=== PATIENT | female | born 1990 | race Caucasian/White ===

== ENCOUNTER → 2017-07-05 | Outpatient (CLI) | payer OTHER ==
[~2017-07-05] MED LIST: FERR325T3 PO; IBUP80TA PO; PERCOCET PO; PREN27TA3 PO; TUMS500C PO
[2017-07-05 17:54] LABS: BASO % 0.6 % (0.0-1.0); EOS # 0.1 K/mm3 (0.0-0.50); EOS % 1.4 % (0.0-3.0); LARGE UNSTAINED CELL # 0.1 K/mm3 (0.0-0.4); LARGE UNSTAINED CELL % 1.2 % (0.0-4.0); LYMPH # 2.1 K/mm3 (1.5-6.5); LYMPH % 32.7 % (24.0-44.0); MEAN CORPUSCULAR HEMOGLOBIN 29.8 pg (27.0-33.0); MEAN CORPUSCULAR HGB CONC 33.6 g/dl (32.0-36.5); MEAN CORPUSCULAR VOLUME 88.5 fl (80.0-96.0); MONO # 0.3 K/mm3 (0.0-0.8); MONO % 5.3 % (0.0-5.0); NEUTROPHILS # 3.7 K/mm3 (1.8-7.7); NEUTROPHILS % 58.8 % (36.0-66.0); PLATELET COUNT, AUTOMATED 274 k/mm3 (150-450); RED CELL DISTRIBUTION WIDTH 13.4 % (11.5-14.5); WHITE BLOOD COUNT 6.2 K/mm3 (4.0-10.0)
[2017-07-08 10:55] LABS: HBsAg Prenatal NEGATIVE (NEGATIVE)
== END ==
LOC: M SMT 13:57
PROVIDERS: ATTEND Pediatrics
DX: Z34.81 Encounter for supervision of other normal pregnancy, first trimester (principal)

== ENCOUNTER → 2017-09-06 | Outpatient (REF) | payer OTHER | LOC: M LAB REF 16:47 | PROVIDERS: ATTEND Advanced Practice Midwife | DX: Z34.82 Encounter for supervision of other normal pregnancy, second trimester (principal) ==

== ENCOUNTER → 2017-09-27 | Outpatient (CLI) | payer OTHER ==
--- NOTE | 2017-09-27 12:08 | REP ---
Obstetric ultrasound for anatomy: There is a single intrauterine gestation in a vertex presentation. There is movement and cardiac activity. The heart rate is 150 beats per minute. The placenta is anterior. There is no placenta previa or abruptio. Placenta is grade zero. The amniotic fluid volume subjectively is normal. Cervix measures 4.6 cm length. By today's measurements the gestational age is 19 weeks 5 days with an GE of 02/17/2016. Gestational age by LMP is 20 weeks 2 days. weight is 329 grams (0 pounds, 11 ounces). This is the 38th percentile for 20 weeks 2 days. The following anatomic structures are identified and are unremarkable: Intracranial lateral ventricles, choroid plexus, cisterna magna, cerebellum, upper lip, facial profile, face, lungs, four-chamber heart, cardiac, four-chamber view, cardiac right ventricular outflow tract, diaphragm, stomach, cord insertion, three-vessel cord, kidneys, bladder, spine and upper lower extremities. Suboptimally demonstrated is the left ventricular outflow tract. A followup study dedicated to this structure might be considered. Otherwise, there are no anomalies.
== END ==
LOC: M WHC 08:58
PROVIDERS: ATTEND Specialist
DX: Z34.82 Encounter for supervision of other normal pregnancy, second trimester (principal); Z3A.20 20 weeks gestation of pregnancy

== ENCOUNTER → 2017-10-11 | Outpatient (CLI) | payer OTHER ==
--- NOTE | 2017-10-11 10:32 | REP ---
Obstetric sonography: History: Supervision of for anatomy. Comparison study September 27, 2017. Findings: Scanning through the gravid uterus demonstrates a viable single intrauterine gestation in a cephalic lie. motion is observed and heart rate is recorded at 160 beats per minute. An anterior grade 1 placenta is seen without evidence of previa or abruption. Amniotic fluid is subjectively normal. Closed cervical length is 5.2 cm. No extrauterine abnormality is observed. There has been appropriate interval growth. Exam quality is inhibited to some degree by patient body habitus and position. No anomaly is seen. The following anatomic structures are identified today and felt to be unremarkable: cranium, choroid plexus, cavum, cerebellum and posterior fossa, lungs, diaphragm, left-sided stomach, abdominal wall cord insertion, three-vessel umbilical cord, kidneys and bladder, spine, upper and lower extremities. heart is less than optimally seen including the left ventricular outflow tract today. Biometry chart: BPD 5.4 cm 22 weeks 3 days Head circumference 20.3 cm 22 weeks 3 days Abdominal, 17.9 cm 22 weeks 5 days Femur length 3.9 cm 22 weeks 3 days Humeral length 3.7 cm 22 weeks 5 days HC/AC ratio normal 1.14. Cephalic index normal 0.73. Estimated weight 517 grams, 1 pound 2 ounces, 79th percentile for 21 weeks 4 days. Impression: Viable single intrauterine gestation of 22 weeks 4 days by today's composite criteria. Expected gestational age estimate based on prior sonography is 21 weeks 5 days. GE by prior sonography February 16, 2018. Left ventricular cardiac outflow tract is still less than optimally seen. Signed by Eloy Bray MD 10/11/2017 01:12 P
== END ==
LOC: M RAD 08:40
PROVIDERS: ATTEND Specialist
DX: Z34.82 Encounter for supervision of other normal pregnancy, second trimester (principal); Z3A.22 22 weeks gestation of pregnancy

== ENCOUNTER → 2017-11-11 | Outpatient (CLI) | payer OTHER ==
--- NOTE | 2017-11-11 19:19 | REP ---
Obstetric sonography: History: Supervision of . Followup anatomy. Findings: Scanning through the gravid uterus demonstrates a viable single intrauterine gestation in a transverse lie, head to the maternal left. motion is observed and heart rate is recorded at 143 beats per minute. An anterior grade 0 placenta is seen without evidence of previa or abruption. Amniotic fluid is subjectively normal. Closed cervical length is 5.0 cm measured transabdominally. No extrauterine abnormalities observed. There has been greater than expected interval growth. No anomaly is seen. spine and upper extremities are less than optimally visualized today however these were observed previously. The following additional anatomic structures are again identified and felt to be unremarkable: cranium, choroid plexus, cavum, cerebellum and posterior fossa, face and profile, lungs, four-chamber heart, left and right ventricular outflow tract views, diaphragm, left-sided stomach, abdominal wall cord insertion, three-vessel umbilical cord, kidneys and bladder, lower extremities. Biometry chart: BPD 7.1 cm = 28 weeks 3 days HC 25.0 cm = 27 weeks 1 day AC 25.3 cm = 29 weeks 4 days FL 5.2 cm = 27 weeks 5 days HL 4.7 cm = 27 weeks 5 days HC/AC ratio normal 0.99. Cephalic index normal 0.81. Estimated weight 1257 grams, 2 pounds 12 ounces, greater than 97th percentile for 26 weeks 0 days. Impression: Viable single intrauterine gestation at 28 weeks 1 day by today's composite criteria. Expected gestational age estimate based on prior sonography is 26 weeks 1 day. GE by prior sonography February 16, 2018. Estimated weight is greater than 97th percentile. Signed by Eloy Bray MD 11/11/2017 07:58 P
== END ==
LOC: M RAD 16:33
PROVIDERS: ATTEND Specialist
DX: Z34.82 Encounter for supervision of other normal pregnancy, second trimester (principal)

== ENCOUNTER → 2017-11-19 | Outpatient (CLI) | payer OTHER ==
[2017-11-19 13:32] LABS: BASO % 0.1 % (0.0-1.0); EOS # 0.1 10^3/uL (0.0-0.50); EOS % 0.7 % (0.0-3.0); IMMATURE GRANULOCYTE % 0.4 % (0-0); LYMPH # 1.8 10^3/uL (1.5-6.5); LYMPH % 24.3 % (24.0-44.0); MEAN CORPUSCULAR HEMOGLOBIN 29.8 pg (27.0-33.0); MEAN CORPUSCULAR HGB CONC 33.2 g/dl (32.0-36.5); MEAN CORPUSCULAR VOLUME 89.7 fl (80.0-96.0); MONO # 0.4 10^3/uL (0.0-0.8); MONO % 5.7 % (0.0-5.0); NEUTROPHILS % 68.8 % (36.0-66.0); PLATELET COUNT, AUTOMATED 214 10^3/uL (150-450); RED CELL DISTRIBUTION WIDTH 14.5 % (11.5-14.5); WHITE BLOOD COUNT 7.3 10^3/uL (4.0-10.0)
== END ==
LOC: M SMT 09:02
PROVIDERS: ATTEND Specialist
DX: Z34.82 Encounter for supervision of other normal pregnancy, second trimester (principal); Z3A.00 Weeks of gestation of pregnancy not specified

== ENCOUNTER → 2018-01-03 | Outpatient (REF) | payer OTHER | LOC: M LAB REF 16:59 | DX: Z34.83 Encounter for supervision of other normal pregnancy, third trimester (principal); Z3A.00 Weeks of gestation of pregnancy not specified ==

== ENCOUNTER → 2018-01-21 | Outpatient (REF) | payer OTHER | LOC: M LAB REF 12:56 | DX: Z34.83 Encounter for supervision of other normal pregnancy, third trimester (principal) ==

== ENCOUNTER → 2018-01-27 | Outpatient (CLI) | payer OTHER | LOC: M RAD 16:36 | DX: Z34.83 Encounter for supervision of other normal pregnancy, third trimester (principal); Z3A.29 29 weeks gestation of pregnancy | CPT/HCPCS: 76816 ==

== ENCOUNTER 2018-02-06 23:51 | Outpatient (CLI) | payer OTHER | END 2018-02-07 03:15 | disposition home or self-care (01) | LOC: M LDO 23:51 | DX: O47.1 False labor at or after 37 completed weeks of gestation (principal); Z3A.38 38 weeks gestation of pregnancy; Z88.8 Allergy status to other drugs, medicaments and biological substances | CPT/HCPCS: 76815 ==

== ENCOUNTER 2018-02-09 06:33 | Inpatient (IN) | payer OTHER ==
[2018-02-09 08:05] LABS: HEMATOCRIT 32.3 % (36.0-47.0); HEMOGLOBIN 10.6 g/dl (12.0-16.0); MEAN CORPUSCULAR HEMOGLOBIN 28.6 pg (27.0-33.0); MEAN CORPUSCULAR HGB CONC 32.8 g/dl (32.0-36.5); MEAN CORPUSCULAR VOLUME 87.1 fl (80.0-96.0); PLATELET COUNT, AUTOMATED 209 10^3/uL (150-450); RED BLOOD COUNT 3.71 10^6/uL (4.00-5.40); RED CELL DISTRIBUTION WIDTH 14.6 % (11.5-14.5); WHITE BLOOD COUNT 8.9 10^3/uL (4.0-10.0)
[2018-02-09] MEDS: LR 1,000 ML IV ×3 (08:24→15:26)
[2018-02-09 08:26] LABS: AMPHETAMINES URINE REFLEX NEGATIVE (NEGATIVE); BARBITURATES URINE REFLEX NEGATIVE (NEGATIVE); BENZODIAZEPINES URINE REFLEX NEGATIVE (NEGATIVE); CANNABINOIDS URINE REFLEX NEGATIVE (NEGATIVE); COCAINE METABOLITE URINE REFLE NEGATIVE (NEGATIVE); METHADONE URINE REFLEX NEGATIVE (NEGATIVE); OPIATES URINE REFLEX NEGATIVE (NEGATIVE); PHENCYCLIDINE URINE REFLEX NEGATIVE (NEGATIVE)
[2018-02-09] MEDS: OXYTOCIN DRIP 30 UNITS in APPROPRIATE DILUENT 1 EA IV (08:39)
[2018-02-09] MEDS ORDERED: FENTANYL 2MCG/ML ROPIVACAINE 0.2% IN 0.9% NACL 200ML IVBAG As Ordered (12:25)
[2018-02-09] MEDS ORDERED: LACTATED RINGER'S 1000 ML IV (14:30)
[2018-02-09] MEDS ORDERED: REFRIGERATOR IV KEYS XX (14:30)
[2018-02-09] MEDS ORDERED: NALOXONE INJ 0.4 MG/1 ML VIAL (J2310) IV ×3 (14:30→18:18)
[2018-02-09] MEDS ORDERED: ONDANSETRON 4MG/2ML VIAL (J2405) IV ×4 (14:30→19:00)
[2018-02-09] MEDS ORDERED: ePHEDrine SULFATE 25 MG/5 ML(5MG/ML) SYRINGE IV (14:30)
[2018-02-09] MEDS ORDERED: diphenhydrAMINE INJ 50MG/ML VIAL (J1200) IV (14:30)
[2018-02-09] MEDS ORDERED: EPIDURAL/PCA KEYS XX (14:30)
[2018-02-09] MEDS ORDERED: FENTANYL/ROPIVACAINE/NACL BAG 200 ML EPIDURAL (14:30)
[2018-02-09] MEDS ORDERED: EPIDURAL COMMENT XX (14:30)
[2018-02-09] MEDS ORDERED: ceFAZolin 2 GM/D5W 50 ML IV BAG (J0690 PER 500MG) As Ordered (17:16)
[2018-02-09] MEDS ORDERED: BICITRA 30ML SOLN UDC As Ordered (17:17)
[2018-02-09] MEDS ORDERED: MORPHINE PRES-FREE INJ 10 MG/10 ML VIAL (J2274) As Ordered (17:24)
[2018-02-09] MEDS ORDERED: OXYTOCIN INJ 10 UNITS/ML VIAL (J2590) As Ordered ×3 (17:25→18:11)
[2018-02-09] MEDS ORDERED: LIDOCAINE 2% W/EPIN INJ 20ML **PRES FREE As Ordered (17:27)
[2018-02-09] MEDS: BICITRA 30ML SOLN UDC PO (17:29)
[2018-02-09] MEDS ORDERED: PHENYLephrine HCL 500 MCG/5 ML (100MCG/ML) SYRINGE (J2370) As Ordered ×2 (17:41→18:11)
[2018-02-09] MEDS ORDERED: ONDANSETRON 4MG/2ML VIAL (J2405) As Ordered (18:10)
[2018-02-09] MEDS ORDERED: KETOROLAC 60 MG/2 ML VIAL (J1885) As Ordered (18:14)
[2018-02-09] MEDS ORDERED: METOCLOPRAMIDE INJ 10MG/2ML VIAL (J2765) IV (18:18)
[2018-02-09] MEDS ORDERED: PERCOCET 5MG/325MG TAB PO (18:45)
[2018-02-09] MEDS ORDERED: RHOGAM 300 MCG (1500 IU) INJ (J2790) IM (18:45)
[2018-02-09] MEDS ORDERED: MEASLES,MUMPS,RUBELLA VACCINE INJ (MMR-II) (90707) SC (18:45)
[2018-02-09] MEDS ORDERED: fentaNYL 100 MCG/2 ML INJECTION (J3010) IV (19:00)
[2018-02-09] MEDS ORDERED: MEPERIDINE INJ 25 MG/ML VIAL (J2175) IV (19:00)
[2018-02-09] MEDS ORDERED: NALBUPHINE HCL 10 MG/ML AMP (J2300) IV (19:00)
[2018-02-09] MEDS: NALBUPHINE HCL 10 MG/ML AMP (J2300) IV (22:26)
[2018-02-10] MEDS: KETOROLAC 30 MG/ML VIAL (J1885) IV ×4 (00:01→18:14)
[2018-02-10] MEDS: LR 1,000 ML IV ×2 (00:02→10:06)
[2018-02-10] MEDS: PERCOCET 5MG/325MG TAB PO ×2 (01:28→10:05)
[2018-02-10] MEDS: LR 500 ML IV (06:15)
[2018-02-10 06:57] LABS: HEMATOCRIT 23.9 % (36.0-47.0); MEAN CORPUSCULAR HEMOGLOBIN 28.9 pg (27.0-33.0); MEAN CORPUSCULAR HGB CONC 32.2 g/dl (32.0-36.5); MEAN CORPUSCULAR VOLUME 89.8 fl (80.0-96.0); PLATELET COUNT, AUTOMATED 151 10^3/uL (150-450); RED BLOOD COUNT 2.66 10^6/uL (4.00-5.40); RED CELL DISTRIBUTION WIDTH 14.8 % (11.5-14.5); WHITE BLOOD COUNT 10.5 10^3/uL (4.0-10.0)
[2018-02-10 06:58] LABS: HEMOGLOBIN 7.7 g/dl (12.0-16.0)
[2018-02-10] MEDS: PRENATAL VITAMINS CHEWABLE TABLET PO (08:34)
[2018-02-10] MEDS: DOCUSATE SODIUM 100 MG CAP PO (19:44)
[2018-02-11] MEDS: PERCOCET 5MG/325MG TAB PO ×2 (00:07→08:01)
[2018-02-11] MEDS: IBUPROFEN 800 MG TAB PO ×2 (01:33→09:09)
[2018-02-11 06:18] LABS: HEMATOCRIT 24.5 % (36.0-47.0); HEMOGLOBIN 7.6 g/dl (12.0-16.0); MEAN CORPUSCULAR HEMOGLOBIN 28.5 pg (27.0-33.0); MEAN CORPUSCULAR VOLUME 91.8 fl (80.0-96.0); PLATELET COUNT, AUTOMATED 149 10^3/uL (150-450); RED BLOOD COUNT 2.67 10^6/uL (4.00-5.40); RED CELL DISTRIBUTION WIDTH 14.8 % (11.5-14.5); WHITE BLOOD COUNT 9.1 10^3/uL (4.0-10.0)
[2018-02-11] MEDS: PRENATAL VITAMINS CHEWABLE TABLET PO (08:01)
== END 2018-02-11 10:55 | disposition home or self-care (01) | DRG 540 ==
LOC: M LDI 06:33 → M OBS 20:29
PROVIDERS: Specialist
PROC: 10D00Z1 Extraction of Products of Conception, Low, Open Approach (ICD-10-PCS; principal; 2018-02-09 17:35)
PROC: 3E033VJ Introduction of Other Hormone into Peripheral Vein, Percutaneous Approach (ICD-10-PCS; 2018-02-09 17:35)
DX: O10.02 Pre-existing essential hypertension complicating childbirth (principal); O34.211 Maternal care for low transverse scar from previous cesarean delivery; Z3A.38 38 weeks gestation of pregnancy; O62.0 Primary inadequate contractions; O66.41 Failed attempted vaginal birth after previous cesarean delivery; Z37.0 Single live birth

== ENCOUNTER → 2018-06-12 | Outpatient (REF) | payer OTHER | LOC: M SFHCPLAZ 13:10 | DX: D22.61 Melanocytic nevi of right upper limb, including shoulder (principal) ==

== ENCOUNTER → 2018-06-17 | Outpatient (REF) | payer OTHER | LOC: M LAB REF 13:52 | DX: Z12.4 Encounter for screening for malignant neoplasm of cervix (principal) ==

== ENCOUNTER → 2019-12-06 | Outpatient (CLI) | payer OTHER ==
[~2019-12-06] MED LIST changes: +COLA100C5 PO; +IBUP-1114 PO; +OXYC1TAB23 PO
--- NOTE | 2019-12-06 12:09 | REP ---
Right foot series: Four views. History: Pain in the right foot. Findings: Overall mineralization pattern is normal. There is plantar calcaneal spurring. An os navicularis noted. No fracture or subluxation is seen. Impression: Plantar heel spur. Otherwise negative radiographs of the right foot. Electronically Signed by Eloy Bray MD 12/06/2019 12:01 P
== END ==
LOC: M ADAMS 11:38
PROVIDERS: ATTEND Physician Assistant
DX: M77.31 Calcaneal spur, right foot (principal); M79.671 Pain in right foot

== ENCOUNTER 2019-12-19 22:54 | Emergency (ER) | payer OTHER ==
[~2019-12-19] VITALS: Ht 162.6 cm; Wt 117.3 kg
[2019-12-19] MEDS ORDERED: ACET500T15 PO (23:12)
[2019-12-19] MEDS ORDERED: diphenhydrAMINE INJ 50MG/ML VIAL (J1200) IV ONE (23:15)
[2019-12-19] MEDS ORDERED: METOCLOPRAMIDE INJ 10MG/2ML VIAL (J2765) IV ONE (23:15)
[2019-12-19] MEDS ORDERED: NS 1,000 ML IV ONE (23:15)
[2019-12-19] MEDS ORDERED: KETOROLAC 30 MG/ML VIAL (J1885) IV ONE (23:15)
[2019-12-19 23:41] LABS: BASO % 0.2 % (0.0-1.0); EOS % 0.1 % (0.0-3.0); HEMATOCRIT 39.9 % (36.0-47.0); HEMOGLOBIN 12.8 g/dl (12.0-15.5); LYMPH # 1.7 10^3/uL (1.5-5.0); LYMPH % 19.1 % (24.0-44.0); MEAN CORPUSCULAR HEMOGLOBIN 27.4 pg (27.0-33.0); MEAN CORPUSCULAR HGB CONC 32.1 g/dl (32.0-36.5); MEAN CORPUSCULAR VOLUME 85.3 fl (80.0-96.0); MONO # 0.4 10^3/uL (0.0-0.8); MONO % 4.2 % (0.0-5.0); NEUTROPHILS # 6.8 10^3/uL (1.5-8.5); NEUTROPHILS % 76.2 % (36.0-66.0); PLATELET COUNT, AUTOMATED 293 10^3/uL (150-450); RED BLOOD COUNT 4.68 10^6/uL (4.00-5.40); WHITE BLOOD COUNT 8.9 10^3/uL (4.0-10.0)
--- NOTE | 2019-12-19 23:44 | REPVR ---
PROCEDURE INFORMATION: Exam: CT Head Without Contrast Exam date and time: 12/19/2019 11:24 PM Age: 29 years old Clinical indication: Altered mental status/memory loss; Confusion or disorientation TECHNIQUE: Imaging protocol: Computed tomography of the head without contrast. Radiation optimization: All CT scans at this facility use at least one of these dose optimization techniques: automated exposure control; mA and/or kV adjustment per patient size (includes targeted exams where dose is matched to clinical indication); or iterative reconstruction. COMPARISON: No relevant prior studies available. FINDINGS: Brain: No evidence of acute intracranial hemorrhage. No acute parenchymal edema. Ventricles: No ventriculomegaly. Bones/joints: No acute fracture. Sinuses: No acute process. Mastoid air cells: Unremarkable as visualized. No mastoid effusion. Soft tissues: No acute findings. IMPRESSION: No acute intracranial process. Electronically signed by: Dillan Herrera On 12/19/2019 23:44:05 PM
[2019-12-19 23:52] LABS: INR 1.02; PROTHROMBIN TIME 13.1 SECONDS (11.8-14.0)
[2019-12-20 00:06] LABS: ACETAMINOPHEN LEVEL < 2.0 UG/ML (10.0-30.0); ALBUMIN 3.8 GM/DL (3.2-5.2); ALT/SGPT 10 U/L (12-78); BILIRUBIN,DIRECT 0.1 MG/DL (0.0-0.2); BILIRUBIN,TOTAL 0.4 MG/DL (0.2-1.0); BLOOD UREA NITROGEN 16 MG/DL (7-18); CALCIUM LEVEL 8.9 MG/DL (8.5-10.1); CARBON DIOXIDE LEVEL 23 MEQ/L (21-32); CHLORIDE LEVEL 105 MEQ/L (98-107); CREATININE FOR GFR 0.92 MG/DL (0.55-1.30); ETHYL ALCOHOL (ETHANOL) < 0.003 % (0.000-0.010); GLOMERULAR FILTRATION RATE > 60.0 (>60); GLUCOSE, FASTING 115 MG/DL (70-100); POTASSIUM SERUM 4.1 MEQ/L (3.5-5.1); SALICYLATE LEVEL < 1.7 MG/DL (5.0-30.0); SODIUM LEVEL 138 MEQ/L (136-145); TOTAL PROTEIN 7.6 GM/DL (6.4-8.2)
[2019-12-20 01:52] VITALS: BP 110/63
== END 2019-12-20 01:59 | disposition home or self-care (01) ==
LOC: M ED 22:54
DX: G43.909 Migraine, unspecified, not intractable, without status migrainosus (principal); J45.909 Unspecified asthma, uncomplicated; Z88.8 Allergy status to other drugs, medicaments and biological substances
CPT/HCPCS: 70450; 80048; 80076; 84443; 85025; 85610; 94760; 96374; 96375; 99284; G0480; J1200; J1885; J2765

== ENCOUNTER → 2021-06-21 | Outpatient (REF) | payer OTHER ==
[~2021-06-21] MED LIST changes: +ACET500T15 PO
[2021-06-21 15:03] LABS: BASO % 0.5 % (0.0-1.0); EOS # 0.1 10^3/uL (0.0-0.5); EOS % 1.5 % (0.0-3.0); HEMATOCRIT 40.8 % (36.0-47.0); HEMOGLOBIN 12.9 g/dl (12.0-15.5); LYMPH # 2.2 10^3/uL (1.5-5.0); LYMPH % 36.5 % (24.0-44.0); MEAN CORPUSCULAR HEMOGLOBIN 28.3 pg (27.0-33.0); MEAN CORPUSCULAR HGB CONC 31.6 g/dl (32.0-36.5); MEAN CORPUSCULAR VOLUME 89.5 fl (80.0-96.0); MONO # 0.4 10^3/uL (0.0-0.8); MONO % 5.8 % (2.0-8.0); NEUTROPHILS # 3.4 10^3/uL (1.5-8.5); NEUTROPHILS % 55.2 % (36.0-66.0); PLATELET COUNT, AUTOMATED 296 10^3/uL (150-450); RED BLOOD COUNT 4.56 10^6/uL (4.00-5.40); WHITE BLOOD COUNT 6.1 10^3/uL (4.0-10.0)
[2021-06-21 15:36] LABS: ALBUMIN 3.7 GM/DL (3.2-5.2); ALT/SGPT 15 U/L (12-78); BILIRUBIN,TOTAL 0.3 MG/DL (0.2-1.0); BLOOD UREA NITROGEN 10 MG/DL (7-18); CARBON DIOXIDE LEVEL 25 MEQ/L (21-32); CHLORIDE LEVEL 110 MEQ/L (98-107); CHOLESTEROL LEVEL 227 MG/DL (<200); CHOLESTEROL RISK RATIO 5.675 (<5); CREATININE FOR GFR 0.76 MG/DL (0.55-1.30); GLOMERULAR FILTRATION RATE > 60.0 (>60); GLUCOSE, FASTING 86 MG/DL (70-100); HDL CHOLESTEROL 40 MG/DL (>40); LDL CHOLESTEROL 140 MG/DL (<100); NON-HDL-C 187 MG/DL; POTASSIUM SERUM 4.4 MEQ/L (3.5-5.1); SODIUM LEVEL 141 MEQ/L (136-145); TOTAL PROTEIN 7.2 GM/DL (6.4-8.2); TRIGLYCERIDES LEVEL 237 MG/DL (<150)
== END ==
LOC: M SFHCADAM 09:06
PROVIDERS: ATTEND Family Medicine
DX: Z00.00 Encounter for general adult medical examination without abnormal findings (principal); F41.9 Anxiety disorder, unspecified

== ENCOUNTER → 2021-10-11 | Outpatient (REF) | payer OTHER | LOC: M SFHCWAGY 17:07 | PROVIDERS: ATTEND Specialist | DX: Z12.4 Encounter for screening for malignant neoplasm of cervix (principal) | CPT/HCPCS: 87624; G0123 ==

== ENCOUNTER → 2022-05-24 | Outpatient (REF) | payer OTHER | LOC: M SFHCDERM 17:10 | PROVIDERS: ATTEND Nurse Practitioner Family | DX: D48.9 Neoplasm of uncertain behavior, unspecified (principal) ==

== ENCOUNTER 2023-01-08 09:09 | Emergency (ER) | payer OTHER ==
[~2023-01-08] VITALS: Ht 160 cm; Wt 127.3 kg
[2023-01-08] MEDS ORDERED: IBUP-1022 PO (09:25)
[2023-01-08 11:17] VITALS: BP 132/80
[2023-01-08] MEDS ORDERED: PENI500T PO (11:25)
[2023-01-08] MEDS ORDERED: predniSONE 20 MG TAB PO ONE (11:25)
== END 2023-01-08 11:51 | disposition home or self-care (01) ==
LOC: M ED 09:09
DX: J02.0 Streptococcal pharyngitis (principal); Z88.8 Allergy status to other drugs, medicaments and biological substances; Z98.890 Other specified postprocedural states
CPT/HCPCS: 87880; 99283; J7512

== ENCOUNTER → 2023-03-20 | Outpatient (CLI) | payer OTHER ==
[~2023-03-20] MED LIST changes: +IBUP-1022 PO; +PENI500T PO
[2023-03-20 13:29] LABS: HEMOGLOBIN 12.8 g/dl (12.0-15.5); MEAN CORPUSCULAR HGB CONC 32.8 g/dl (32.0-36.5); MEAN CORPUSCULAR VOLUME 88.4 fl (80.0-96.0); PLATELET COUNT, AUTOMATED 305 10^3/uL (150-450); RED BLOOD COUNT 4.41 10^6/uL (4.00-5.40); WHITE BLOOD COUNT 6.9 10^3/uL (4.0-10.0)
[2023-03-20 15:00] LABS: GC DNA AMPLIFICATION NEGATIVE (NEGATIVE)
[2023-03-21 17:23] LABS: HIV 1&2 SCREEN CENTAUR NEGATIVE (NEGATIVE)
== END ==
LOC: M PLALAB 09:09
PROVIDERS: ATTEND Specialist
DX: Z34.81 Encounter for supervision of other normal pregnancy, first trimester (principal)

== ENCOUNTER → 2023-06-07 | Outpatient (CLI) | payer OTHER | LOC: M RAD 14:55 | PROVIDERS: ATTEND Advanced Practice Midwife | DX: O34.219 Maternal care for unspecified type scar from previous cesarean delivery (principal); Z3A.21 21 weeks gestation of pregnancy ==

== ENCOUNTER → 2023-07-04 | Outpatient (CLI) | payer OTHER | LOC: M WHC 14:37 | PROVIDERS: ATTEND Obstetrics & Gynecology | DX: O34.211 Maternal care for low transverse scar from previous cesarean delivery (principal); Z3A.23 23 weeks gestation of pregnancy ==

== ENCOUNTER → 2023-08-01 | Outpatient (CLI) | payer OTHER | LOC: M WHC 06:59 | PROVIDERS: ATTEND Obstetrics & Gynecology | DX: O34.211 Maternal care for low transverse scar from previous cesarean delivery (principal); Z3A.27 27 weeks gestation of pregnancy ==

== ENCOUNTER → 2023-08-01 | Outpatient (CLI) | payer OTHER ==
[2023-08-01 14:26] LABS: HEMATOCRIT 33.8 % (36.0-47.0); HEMOGLOBIN 10.6 g/dl (12.0-15.5); MEAN CORPUSCULAR HEMOGLOBIN 28.3 pg (27.0-33.0); MEAN CORPUSCULAR HGB CONC 31.4 g/dl (32.0-36.5); MEAN CORPUSCULAR VOLUME 90.1 fl (80.0-96.0); PLATELET COUNT, AUTOMATED 221 10^3/uL (150-450); RED BLOOD COUNT 3.75 10^6/uL (4.00-5.40); WHITE BLOOD COUNT 8.9 10^3/uL (4.0-10.0)
== END ==
LOC: M PLALAB 08:12
PROVIDERS: ATTEND Obstetrics & Gynecology
DX: O34.211 Maternal care for low transverse scar from previous cesarean delivery (principal)

== ENCOUNTER → 2023-09-16 | Outpatient (CLI) | payer OTHER | LOC: M WHC 08:28 | PROVIDERS: ATTEND Obstetrics & Gynecology | DX: O40.3XX0 Polyhydramnios, third trimester, not applicable or unspecified (principal); Z3A.34 34 weeks gestation of pregnancy ==

== ENCOUNTER → 2023-09-24 | Outpatient (CLI) | payer OTHER ==
[~2023-09-24] MED LIST changes: +FLON27.5; +LEXA1TAB PO; +PRENTAB9 PO
== END ==
LOC: M WHC 08:57
PROVIDERS: ATTEND Specialist
DX: O40.9XX0 Polyhydramnios, unspecified trimester, not applicable or unspecified (principal)

== ENCOUNTER 2023-09-25 10:15 | Outpatient (CLI) | payer OTHER ==
[~2023-09-25] VITALS: Ht 160 cm; Wt 131.0 kg
[~2023-09-25 10:15] MED LIST changes: -FLON27.5; -LEXA1TAB PO; -PRENTAB9 PO
[2023-09-25 10:43] VITALS: BP 129/66
[2023-09-25] MEDS ORDERED: LEXA1TAB PO (10:50)
[2023-09-25] MEDS ORDERED: HOME MED LIST COMPLETE! XX SCH (10:50)
[2023-09-25] MEDS ORDERED: PRENTAB9 PO (10:50)
[2023-09-25] MEDS ORDERED: FLON27.5 (10:50)
[2023-09-25 12:57] VITALS: BP 120/62
== END 2023-09-25 15:05 | disposition home or self-care (01) ==
LOC: M LDO 10:15
PROVIDERS: ATTEND Advanced Practice Midwife
DX: O40.3XX9 Polyhydramnios, third trimester, other fetus (principal); O34.219 Maternal care for unspecified type scar from previous cesarean delivery; O99.213 Obesity complicating pregnancy, third trimester; E66.01 Morbid (severe) obesity due to excess calories; Z88.8 Allergy status to other drugs, medicaments and biological substances; Z3A.35 35 weeks gestation of pregnancy
CPT/HCPCS: 59025; G0463

== ENCOUNTER → 2023-09-25 | Outpatient (REF) | payer OTHER | LOC: M SFHCWAGY 13:12 | PROVIDERS: ATTEND Specialist | DX: O40.9XX0 Polyhydramnios, unspecified trimester, not applicable or unspecified (principal) ==

== ENCOUNTER → 2023-09-30 | Outpatient (CLI) | payer OTHER ==
[~2023-09-30] MED LIST changes: +FLON27.5; +LEXA1TAB PO; +PRENTAB9 PO
== END ==
LOC: M RAD 09:50
PROVIDERS: ATTEND Obstetrics & Gynecology
DX: O40.3XX0 Polyhydramnios, third trimester, not applicable or unspecified (principal); Z3A.36 36 weeks gestation of pregnancy

== ENCOUNTER 2023-10-07 07:50 | Inpatient (IN) | payer OTHER ==
[~2023-10-07] VITALS: Ht 160 cm; Wt 130.8 kg
[2023-10-07] VITALS (10 sets, daily range): BP systolic 104–142; BP diastolic 56–90; TEMP 97.6; O2SAT 97–99
[2023-10-07] MEDS ORDERED: LACTATED RINGER'S 1000 ML IV STA (08:03)
[2023-10-07] MEDS ORDERED: LR 1,000 ML IV SCH (08:05)
[2023-10-07] MEDS ORDERED: BICITRA 30ML SOLN UDC PO ONE (08:05)
[2023-10-07] MEDS ORDERED: ceFAZolin SOD 2 GM in IV 1 EA IV ONE ×2 (08:05→09:00)
[2023-10-07] MEDS ORDERED: ceFAZolin SOD 3 GM in IV 1 EA IV ONE (08:15)
[2023-10-07 08:56] LABS: HEMATOCRIT 32.2 % (36.0-47.0); HEMOGLOBIN 10.7 g/dl (12.0-15.5); MEAN CORPUSCULAR HEMOGLOBIN 27.8 pg (27.0-33.0); MEAN CORPUSCULAR HGB CONC 33.2 g/dl (32.0-36.5); MEAN CORPUSCULAR VOLUME 83.6 fl (80.0-96.0); PLATELET COUNT, AUTOMATED 254 10^3/uL (150-450); RED BLOOD COUNT 3.85 10^6/uL (4.00-5.40); WHITE BLOOD COUNT 7.7 10^3/uL (4.0-10.0)
[2023-10-07] MEDS ORDERED: ceFAZolin SOD 1 GM in D5W MINI-BAG PLUS 50 ML IV ONE (09:00)
[2023-10-07] MEDS ORDERED: MORPHINE PRES-FREE INJ 10 MG/10 ML VIAL As Ordered ONE (09:19)
[2023-10-07] MEDS ORDERED: OXYTOCIN INJ 10UNITS/ML 1ML VIAL As Ordered ONE (09:19)
[2023-10-07] MEDS ORDERED: ONDANSETRON 4MG 2ML VIAL As Ordered ONE (09:19)
[2023-10-07] MEDS ORDERED: KETOROLAC 60MG 2ML VIAL As Ordered ONE (09:19)
[2023-10-07] MEDS ORDERED: PHENYLephrine 500MCG 5ML (100MCG/ML) SYRINGE As Ordered ONE (09:19)
[2023-10-07 10:54] LABS: CORD GAS ABE A -1.8; CORD GAS HCO3 A 27.5 MMOL/L; CORD GAS O2 SAT A 18.5 %; CORD GAS PCO2 A 65.7 mmHg; CORD GAS PH A 7.24 UNITS; CORD GAS PO2 A 11.3 mmHg; CORD GAS SBC A 20.9 MMOL/L; CORD GAS TCO2 A 29.5 MMOL/L
[2023-10-07 10:57] LABS: CORD GAS ABE V -4.1; CORD GAS HCO3 V 21.8 MMOL/L; CORD GAS PCO2 V 42.8 mmHg; CORD GAS PH V 7.325 UNITS; CORD GAS PO2 V 19.3 mmHg; CORD GAS SBC V 19.8 MMOL/L; CORD GAS TCO2 V 23.1 MMOL/L
[2023-10-07] MEDS ORDERED: NALOXONE INJ 0.4MG/1ML VIAL IV PRN ×2 (11:05)
[2023-10-07] MEDS ORDERED: METOCLOPRAMIDE INJ 10MG/2ML VIAL IV PRN (11:05)
[2023-10-07] MEDS ORDERED: oxyCODONE 5MG TAB PO PRN (11:05)
[2023-10-07] MEDS ORDERED: MEPERIDINE 25 MG/ML 1ML VIAL IV PRN (11:05)
[2023-10-07] MEDS ORDERED: **NOTE PATIENT COMMENT** MISC XX SCH (11:05)
[2023-10-07] MEDS: SLF 3 ML SYR IV SCH ×2 (11:05→19:05)
[2023-10-07] MEDS ORDERED: diphenhydrAMINE 50MG/ML VIAL IV PRN (11:05)
[2023-10-07] MEDS ORDERED: ONDANSETRON 4MG 2ML VIAL IV PRN (11:05)
[2023-10-07] MEDS ORDERED: fentaNYL 100 MCG/2 ML INJECTION IV PRN (11:05)
[2023-10-07] MEDS ORDERED: RHOGAM 300MCG (1500IU) INJ IM SCH (11:45)
[2023-10-07] MEDS ORDERED: PERCOCET 5MG/325MG TAB PO PRN (11:45)
[2023-10-07] MEDS ORDERED: OXYTOCIN DRIP 30 UNITS in IV 1 EA IV SCH (11:45)
[2023-10-07] MEDS ORDERED: DOCUSATE SODIUM 100MG CAPSULE PO PRN (11:45)
[2023-10-07] MEDS ORDERED: SIMETHICONE 80MG CHEW TAB PO PRN (11:45)
[2023-10-07] MEDS ORDERED: OXYTOCIN 30UNITS IN 0.9% NaCl 500ML IV BAG As Ordered ONE (12:01)
[2023-10-07] MEDS: PERCOCET 5MG/325MG TAB PO PRN (13:34)
[2023-10-07] MEDS: LR 1,000 ML IV SCH ×2 (16:35→19:45)
[2023-10-07] MEDS: KETOROLAC 30 MG/ML 1ML VIAL IV SCH ×2 (16:35→23:11)
[2023-10-08] MEDS: SLF 3 ML SYR IV SCH (03:05)
[2023-10-08] MEDS: KETOROLAC 30 MG/ML 1ML VIAL IV SCH (05:00)
[2023-10-08 06:39] LABS: HEMATOCRIT 28.6 % (36.0-47.0); MEAN CORPUSCULAR HEMOGLOBIN 27.3 pg (27.0-33.0); MEAN CORPUSCULAR HGB CONC 31.5 g/dl (32.0-36.5); MEAN CORPUSCULAR VOLUME 86.7 fl (80.0-96.0); PLATELET COUNT, AUTOMATED 185 10^3/uL (150-450); WHITE BLOOD COUNT 8.6 10^3/uL (4.0-10.0)
[2023-10-08] MEDS: PRENATAL VITAMINS CHEWABLE TABLET PO SCH (07:35)
[2023-10-08] MEDS ORDERED: KETOROLAC 30 MG/ML 1ML VIAL IV ONE (08:00)
[2023-10-08 10:00] VITALS: BP 117/58; O2SAT 98
[2023-10-08] MEDS ORDERED: IBUP80TA PO (10:14)
[2023-10-08] MEDS ORDERED: OXYC1TAB23 PO (10:14)
[2023-10-08] MEDS ORDERED: COLA100C5 PO (10:16)
[2023-10-08] MEDS ORDERED: IBUPROFEN 800 MG TAB PO SCH (13:00)
[2023-10-08 14:00] VITALS: BP 116/57; O2SAT 98
[2023-10-08] MEDS: IBUPROFEN 800 MG TAB PO SCH ×2 (14:09→22:51)
[2023-10-08] MEDS: PERCOCET 5MG/325MG TAB PO PRN (16:50)
[2023-10-08 18:00] VITALS: BP 119/62; O2SAT 97
[2023-10-08 22:00] VITALS: BP 119/60; O2SAT 98
[2023-10-09 02:00] VITALS: BP 122/64; O2SAT 98
[2023-10-09] MEDS: IBUPROFEN 800 MG TAB PO SCH ×3 (05:40→23:04)
[2023-10-09 06:00] VITALS: BP 108/56; O2SAT 97
[2023-10-09] MEDS: PERCOCET 5MG/325MG TAB PO PRN ×3 (07:41→20:07)
[2023-10-09] MEDS ORDERED: MEASLES,MUMPS,RUBELLA VACCINE INJ (MMR-II) SC.IMMUN ONE (09:00)
[2023-10-09] MEDS: PRENATAL VITAMINS CHEWABLE TABLET PO SCH (09:37)
[2023-10-09 10:00] VITALS: BP 135/90; O2SAT 99
[2023-10-09 10:10] VITALS: BP 123/62
[2023-10-09 18:00] VITALS: BP 141/68; O2SAT 98
[2023-10-10 06:00] VITALS: BP 136/79; O2SAT 99
[2023-10-10] MEDS: IBUPROFEN 800 MG TAB PO SCH (06:27)
[2023-10-10] MEDS: PRENATAL VITAMINS CHEWABLE TABLET PO SCH (07:41)
== END 2023-10-10 13:15 | disposition home or self-care (01) | DRG 540 ==
LOC: M LDI 07:50 → M OBS 12:40
PROVIDERS: ADMIT Specialist; ATTEND Specialist
PROC: 0UB70ZZ Excision of Bilateral Fallopian Tubes, Open Approach (ICD-10-PCS; 2023-10-07)
PROC: 10D00Z1 Extraction of Products of Conception, Low, Open Approach (ICD-10-PCS; principal; 2023-10-07 09:30)
DX: O34.211 Maternal care for low transverse scar from previous cesarean delivery (principal); O10.02 Pre-existing essential hypertension complicating childbirth; O40.3XX0 Polyhydramnios, third trimester, not applicable or unspecified; Z37.0 Single live birth; Z30.2 Encounter for sterilization; O36.63X0 Maternal care for excessive fetal growth, third trimester, not applicable or unspecified; Z3A.37 37 weeks gestation of pregnancy